=== PATIENT | female | born 1960 | race Caucasian/White ===

== ENCOUNTER 2017-09-08 16:38 | Emergency (ER) | payer OTHER ==
[~2017-09-08] VITALS: Ht 167.6 cm; Wt 60.0 kg
[2017-09-08] MEDS ORDERED: SODIUM CHLORIDE 0.9% 1,000ML IVBOLUS ONE (18:00)
[2017-09-08] MEDS ORDERED: SODIUM CHLORIDE FLUSH 10ML SYR IVF ONE (18:00)
[2017-09-08 18:07] LABS: ASPARTATE AMINO TRANSFERASE 159 U/L (15-37); BLOOD UREA NITROGEN 11 mg/dL (7-18)
[2017-09-08 18:23] LABS: HEMATOCRIT 31.4 % (34.6-47.8); HEMOGLOBIN 10.7 g/dL (11.7-16.4); WHITE BLOOD COUNT 2.4 x10^3/uL (3.4-10)
[2017-09-08 18:24] LABS: DIFF TOTAL CELLS COUNTED 100 CELL DIFF
[2017-09-08 18:32] LABS: ANISOCYTOSIS 1+
[2017-09-08 18:33] LABS: POIKILOCYTOSIS 1+
[2017-09-08 18:34] LABS: VERIFY COUNTS? YES
[2017-09-08 21:34] VITALS: BP 99/66
== END 2017-09-08 21:38 | disposition home or self-care (01) ==
LOC: ED 21:32
DX: R19.7 Diarrhea, unspecified (principal)
CPT/HCPCS: 36415; 80053; 83605; 83690; 85025; 85610; 96360; 99284; J7030